=== PATIENT | female | born 1995 | race Two or more races ===

== ENCOUNTER 2023-04-28 10:17 | Day surgery (SDC) | payer SELFPAY ==
[~2023-04-28 10:17] MED LIST: Lactated Ringers 1,000 ML IV SCH; Propofol 200 MG/20 ML SDV ONE; Sodium Chloride 0.9% 10 ML Syringe FLUSH PRN; Sodium Chloride 0.9% 2.5 ML Syringe FLUSH PRN; Sodium Chloride 0.9% 20 ML SDV IV PRN
== END 2023-04-28 12:52 | disposition home or self-care (01) ==
LOC: MW.SDS 10:17
PROVIDERS: ATTEND Surgery
DX: K29.50 Unspecified chronic gastritis without bleeding (principal); K29.80 Duodenitis without bleeding; K44.9 Diaphragmatic hernia without obstruction or gangrene; K21.9 Gastro-esophageal reflux disease without esophagitis; Z87.19 Personal history of other diseases of the digestive system; Z86.16 Personal history of COVID-19; Z79.899 Other long term (current) drug therapy
CPT/HCPCS: 43239; 81025; J2704; J7120; 00731

== ENCOUNTER 2024-01-09 06:36 | Day surgery (SDC) | payer OTHER ==
[~2024-01-09 06:36] MED LIST changes: -Lactated Ringers 1,000 ML IV SCH; -Propofol 200 MG/20 ML SDV ONE; -Sodium Chloride 0.9% 10 ML Syringe FLUSH PRN; -Sodium Chloride 0.9% 2.5 ML Syringe FLUSH PRN; -Sodium Chloride 0.9% 20 ML SDV IV PRN; +ceFAZolin 2 GM in Sodium Chloride 0.9% 50 ML IV ONE; +metroNIDAZOLE/Normal Saline 500 MG in Premix Bag 1 BAG IV ONE
[2024-01-09] MEDS ORDERED: Propofol 200 MG/20 ML SDV ONE (07:09)
[2024-01-09] MEDS: Lactated Ringers 1,000 ML IV SCH (07:10)
[2024-01-09] MEDS ORDERED: fentaNYL 250 MCG/5 ML SDV ONE (07:10)
[2024-01-09] MEDS ORDERED: Midazolam 1 MG/ML 2 ML SDV ONE (07:10)
[2024-01-09] MEDS ORDERED: Ondansetron 4 MG/2 ML SDV ONE (07:12)
[2024-01-09] MEDS ORDERED: dexmedeTOMIDine HCl 200 MCG/2 ML SDV ONE (07:12)
[2024-01-09] MEDS ORDERED: Water For Injection, Sterile 20 ML ONE (07:12)
[2024-01-09] MEDS ORDERED: Bupivacaine 0.5% 30 ML SDV ONE (07:17)
[2024-01-09] MEDS ORDERED: ceFAZolin 1 GM Vial ONE (07:21)
[2024-01-09] MEDS ORDERED: metroNIDAZOLE/Normal Saline 100 ML ONE (07:27)
[2024-01-09] MEDS ORDERED: Bupivacaine 0.25% 30 ML SDV ONE (07:37)
[2024-01-09] MEDS ORDERED: Bupivacaine 0.5%/EPINEPHrine 1:200,000 30 ML SDV ONE (07:37)
[2024-01-09] MEDS: metroNIDAZOLE/Normal Saline 500 MG in Premix Bag 1 BAG IV ONE (07:38)
[2024-01-09] MEDS ORDERED: fentaNYL 50 MCG/ML SDV IVPUSH PRN (07:42)
[2024-01-09] MEDS ORDERED: Albuterol 0.083% 2.5 MG/3 ML Neb Soln NEB PRN (07:42)
[2024-01-09] MEDS ORDERED: HYDROmorphone 1 MG/ML Syringe IVPUSH PRN (07:42)
[2024-01-09] MEDS ORDERED: droPERidol 5 MG/2 ML SDV IVPUSH PRN (07:42)
[2024-01-09] MEDS ORDERED: Ondansetron 4 MG/2 ML SDV IVPUSH PRN (07:42)
[2024-01-09] MEDS ORDERED: Naloxone 0.4 MG/ML SDV IVPUSH PRN (07:42)
[2024-01-09] MEDS ORDERED: Morphine 2 MG/ML SYRINGE IVPUSH PRN (07:42)
[2024-01-09] MEDS ORDERED: Metoclopramide 10 MG/2 ML SDV IVPUSH PRN (07:42)
[2024-01-09] MEDS ORDERED: Rocuronium Bromide 50 MG/5 ML Syringe ONE (08:03)
[2024-01-09] MEDS ORDERED: Indocyanine Green 25 MG SDV ONE (08:15)
[2024-01-09] MEDS ORDERED: ceFAZolin 2 GM Vial ONE (08:17)
[2024-01-09] MEDS ORDERED: Ketorolac 30 MG/ML SDV ONE (08:21)
[2024-01-09] MEDS ORDERED: Dexamethasone 4 MG/ML 5 ML MDV ONE (08:21)
[2024-01-09] MEDS ORDERED: Sugammadex Sodium 200 MG/2 ML VIAL IV ONE (08:22)
[2024-01-09] MEDS ORDERED: Acetaminophen/HYDROcodone 325-5 MG Tab PO PRN (09:25)
[2024-01-09] MEDS ORDERED: Morphine 4 MG/ML Syringe IVPUSH PRN (09:25)
[2024-01-09] MEDS ORDERED: Lactated Ringers 1,000 ML IV SCH (09:30)
== END 2024-01-09 11:10 | disposition home or self-care (01) ==
LOC: MW.SDS 06:36
PROVIDERS: ATTEND Surgery
DX: K81.1 Chronic cholecystitis (principal); K29.70 Gastritis, unspecified, without bleeding; K90.49 Malabsorption due to intolerance, not elsewhere classified; K21.9 Gastro-esophageal reflux disease without esophagitis; N89.8 Other specified noninflammatory disorders of vagina; B37.31 Acute candidiasis of vulva and vagina; Z78.9 Other specified health status; R94.8 Abnormal results of function studies of other organs and systems; R10.9 Unspecified abdominal pain; Z86.19 Personal history of other infectious and parasitic diseases
CPT/HCPCS: 47562; 81025; J0131; J0665; J0690; J1100; J1836; J1885; J2250; J2704; J3010; J3490; J7030; J7120; 00790; 64488; J2405

== ENCOUNTER 2024-08-13 10:07 | Emergency (ER) | payer OTHER ==
[2024-08-13 10:38] LABS: BASOPHILS ABSOLUTE AUTO 0.02 K/uL (0.00-0.20); BASOPHILS PERCENT AUTO 0.3 % (0.0-1.0); EOSINOPHILS ABSOLUTE AUTO 0.12 K/uL (0.00-0.45); EOSINOPHILS PERCENT AUTO 1.9 % (0.0-6.0); HEMATOCRIT 39.6 % (37.0-47.0); HEMOGLOBIN 13.4 g/dL (12.0-16.0); IMMATURE GRAN ABSOLUTE AUTO 0.03 K/uL (0.00-0.05); IMMATURE GRAN PERCENT AUTO 0.5 % (0.0-0.4); LYMPHOCYTES ABSOLUTE AUTO 1.43 K/uL (1.00-4.80); LYMPHOCYTES PERCENT AUTO 22.2 % (24.0-44.0); MEAN CORPUSCULAR HGB CONC 33.8 g/dL (32.0-36.0); MEAN CORPUSCULAR VOLUME 88.8 fL (83.0-99.0); MEAN PLATELET VOLUME 10.1 fL (9.4-12.3); MONOCYTES ABSOLUTE AUTO 0.44 K/uL (0.00-0.80); MONOCYTES PERCENT AUTO 6.8 % (0.0-8.0); NEUTROPHILS ABSOLUTE AUTO 4.39 K/uL (1.80-7.70); NEUTROPHILS PERCENT AUTO 68.3 % (41.0-71.0); PLATELET COUNT,PLT 220 K/uL (150-400); RED BLOOD CELL COUNT 4.46 M/uL (4.10-5.30); WHITE BLOOD CELL COUNT,WBC 6.43 K/uL (3.9-11.3)
[2024-08-13] MEDS: traMADol 50 MG Tab PO ONE (11:15)
[2024-08-13 11:17] LABS: A/G RATIO 0.9 (0.9-1.6); ALANINE AMINOTRANSFERASE,ALT 47 IU/L (14-63); ALBUMIN 3.7 g/dL (3.4-5.0); ALKALINE PHOSPHATASE 98 U/L (46-116); ASPARTATE AMNIOTRANSFERASE,AST 20 IU/L (15-37); BILIRUBIN TOTAL 0.3 mg/dL (0.2-1.0); BLOOD UREA NITROGEN,BUN 15 mg/dL (7.0-18.0); CALCIUM 8.8 mg/dL (8.5-10.1); CARBON DIOXIDE,CO2 27.4 mmol/L (21.0-32.0); CHLORIDE,CL 102 mmol/L (98-107); CREATININE 0.8 mg/dL (0.6-1.0); EST CRCL DRUG DOSING (CG) 91.68 mL/min; ESTIMATED GFR 101 mL/min (>60); GLUCOSE RANDOM 97 mg/dL (74-106); POTASSIUM,K 4.2 mmol/L (3.5-5.1); PROTEIN TOTAL,TP 7.6 g/dL (6.4-8.2); SODIUM,NA 138 mmol/L (136-145)
[2024-08-13 11:20] LABS: CORONAVIRUS COVID-19 NAA NEGATIVE (NEGATIVE); INFLUENZA A NAA NEGATIVE (NEGATIVE); INFLUENZA B NAA NEGATIVE (NEGATIVE)
[2024-08-13] MEDS: Fluconazole 150 MG Tab PO ONE (11:41)
== END 2024-08-13 11:42 | disposition home or self-care (01) ==
LOC: MW.ED 10:07
DX: J06.9 Acute upper respiratory infection, unspecified (principal); Z86.16 Personal history of COVID-19; Z75.8 Other problems related to medical facilities and other health care
CPT/HCPCS: 0240U; 36415; 71045; 80053; 84484; 85025; 93005; 99285; A9270; 93010; 99283

== ENCOUNTER 2024-12-08 14:46 | Emergency (ER) | payer OTHER | END 2024-12-08 16:00 | disposition home or self-care (01) | LOC: MW.ED 14:46 | DX: J06.9 Acute upper respiratory infection, unspecified (principal); B97.89 Other viral agents as the cause of diseases classified elsewhere; Z75.8 Other problems related to medical facilities and other health care; Z79.899 Other long term (current) drug therapy; Z90.49 Acquired absence of other specified parts of digestive tract | CPT/HCPCS: 99283 ==

== ENCOUNTER 2025-05-23 20:11 | Emergency (ER) | payer OTHER ==
[2025-05-23 21:11] LABS: APPEARANCE,URINE CLEAR; BILIRUBIN,URINE NEGATIVE (NEGATIVE); COLOR,URINE YELLOW; GLUCOSE,URINE NEGATIVE (NEGATIVE); KETONES,URINE NEGATIVE (NEGATIVE); LEUKOCYTE ESTERASE,URINE NEGATIVE (NEGATIVE); NITRITE,URINE NEGATIVE (NEGATIVE); OCCULT BLOOD,URINE NEGATIVE (NEGATIVE); PROTEIN,URINE NEGATIVE (NEGATIVE)
[2025-05-23 21:19] LABS: BACTERIA,URINE FEW (NEGATIVE); EPITHELIAL CELLS,URINE FEW (NONE-FEW); MUCUS,URINE RARE (NONE-MOD); RBC,URINE 0-1 (0-2/HPF); WBC,URINE 0-1 (0-5/HPF)
[2025-05-23] MEDS: cefTRIAXone 1 GM in Lidocaine 1% 2.1 ML IM ONE (22:04)
[2025-05-23 23:38] LABS: CANDIDA DNA PROBE NEGATIVE (NEGATIVE); GARDNERELLA DNA PROBE POSITIVE (NEGATIVE); TRICHOMONAS DNA PROBE NEGATIVE (NEGATIVE)
[2025-05-24 00:02] LABS: C. TRACHOMATIS BY PCR NOT DETECTED; N. GONORRHOEAE BY PCR NOT DETECTED
== END 2025-05-23 22:57 | disposition home or self-care (01) ==
LOC: MW.ED 20:11
DX: N72 Inflammatory disease of cervix uteri (principal); Z90.49 Acquired absence of other specified parts of digestive tract; Z79.899 Other long term (current) drug therapy; Z75.3 Unavailability and inaccessibility of health-care facilities
CPT/HCPCS: 81001; 81025; 87480; 87491; 87510; 87591; 87660; 96372; 99283; J0696; J2003